=== PATIENT | male | born 1945 | race Caucasian/White ===

== ENCOUNTER → 2017-09-15 17:28 | Outpatient (CLI) | payer MEDICARE, OTHER, SELFPAY ==
--- NOTE | 2017-09-15 | DI.MRI.S_ITS ---
PROCEDURE: MR KNEE RT WO CON INDICATIONS: RIGHT KNEE PAIN TECHNIQUE: Noncontrast sagittal PD fast spin echo and T2 fast spin echo with fat saturation, sagittal 3-D FLASH with fat saturation; coronal T1 spin echo and PD fast spin echo with fat saturation, and axial PD fast spin echo with fat saturation through the knee. COMPARISON: [facility] [place], CR, XR KNEE ARTHRITIC SERIES BI, 09/03/2017, 15:03. FINDINGS: Image quality: Excellent. Menisci: Amorphous high signal intensity within the posterior horn medial meniscus is present with superior articular surface extension, indicating degenerative tearing. Amorphous high signal intensity within the lateral meniscal body is present with superior articular surface extension, indicating degenerative tearing. Cruciate ligaments: The anterior and posterior cruciate ligaments appear intact. Medial structures: The medial collateral ligament appears intact. The posterior oblique ligament, semimembranosus tendon insertions, oblique popliteal ligament, and meniscocapsular junction appear intact. Visualized portions of the pes anserinus tendons appear normal. No abnormal bursal fluid. Lateral structures: The lateral collateral ligament, long and short heads of the biceps femoris tendon appear intact. The popliteus tendon appears normal; the popliteofibular ligament appears intact. The posterosuperior and anteroinferior popliteomeniscal fascicles appear intact. The arcuate and fabellofibular ligaments appear intact, on either side of the lateral inferior geniculate artery. Iliotibial band appears normal. Anterior structures: The quadriceps and patellar tendons appear intact. Patellar alignment is normal. No femoral trochlear dysplasia or ventral trochlear prominence. No edema in the infrapatellar fat pad. Mild prepatellar subcutaneous ill-defined T2 signal elevation. Bones and cartilage: No bone marrow contusions or fractures. There is ill-defined T2 signal elevation within the posterior nonweightbearing aspect of the medial femoral condyle spanning roughly 30 mm, with a central 4 mm diameter well-circumscribed cystic focus with a thin surrounding low T2 intensity rim. Focal full-thickness articular cartilage defect overlies the posterior weightbearing aspect of the lateral femoral condyle measuring 6 mm transverse by 11 mm anteroposterior. Joint space: There is physiologic knee joint fluid. There is a small Nichole's cyst. Normal appearing synovial plicae are incidentally noted. IMPRESSION: 1. Degenerative tearing of the medial and lateral menisci. 2. Lateral compartment articular cartilage loss. 3. Indeterminant T2 signal elevation within the medial femoral condyle, which has an appearance most suggestive of degenerative sequelae. 4. Trace Nichole's cyst. 5. Mild prepatellar bursitis. Dictated by: Brandon Salinas M.D. on 09/16/2017 at 10:17 Approved by: Brandon Salinas M.D. on 09/16/2017 at 10:21
--- NOTE | 2017-09-15 17:32 | DI.MRI.S_ITS ---
PROCEDURE: MR KNEE LT WO CON INDICATIONS: LEFT KNEE PAIN TECHNIQUE: Noncontrast sagittal PD fast spin echo and T2 fast spin echo with fat saturation, sagittal 3-D FLASH with fat saturation; coronal T1 spin echo and PD fast spin echo with fat saturation, and axial PD fast spin echo with fat saturation through the knee. COMPARISON: [facility] [place], CR, XR KNEE ARTHRITIC SERIES BI, 09/03/2017, 15:03. FINDINGS: Image quality: Excellent. Menisci: There is radial tearing of the free edge of the posterior horn medial meniscus. Lateral meniscus demonstrates amorphous high signal intensity within the free edge of the body, demonstrating superior articular surface extension, indicating low-grade degenerative tearing. Cruciate ligaments: The anterior and posterior cruciate ligaments appear intact. Medial structures: The medial collateral ligament appears intact. The posterior oblique ligament, semimembranosus tendon insertions, oblique popliteal ligament, and meniscocapsular junction appear intact. Visualized portions of the pes anserinus tendons appear normal. No abnormal bursal fluid. Lateral structures: The lateral collateral ligament, long and short heads of the biceps femoris tendon appear intact. The popliteus tendon appears normal; the popliteofibular ligament appears intact. The posterosuperior and anteroinferior popliteomeniscal fascicles appear intact. The arcuate and fabellofibular ligaments appear intact, on either side of the lateral inferior geniculate artery. Iliotibial band appears normal. Anterior structures: The quadriceps and patellar tendons appear intact. Patellar alignment is normal. No femoral trochlear dysplasia or ventral trochlear prominence. No edema in the infrapatellar fat pad. Bones and cartilage: No bone marrow contusions or fractures. Fragmentation of the anterior tibial tubercle is present. Moderate irregular articular cartilage loss overlies the lateral patellar facet, with mild underlying ill-defined degenerative marrow edema within the lateral patellar facet. There is a focal full-thickness articular cartilage defect overlying the posterior weightbearing aspect of the lateral femoral condyle measuring 10 mm anteroposterior by 5 mm transverse. Joint space: There is physiologic knee joint fluid. No Nichole's cyst. Normal appearing synovial plicae are incidentally noted. IMPRESSION: 1. Medial and lateral meniscal tearing. 2. Lateral and patellofemoral compartment articular cartilage loss. 3. Remote Hamzah-Schlatter's disease. Dictated by: Brandon Salinas M.D. on 09/16/2017 at 9:20 Approved by: Brandon Salinas M.D. on 09/16/2017 at 9:26
--- NOTE | 2017-09-15 17:45 | DI.MRI.S_ITS ---
PROCEDURE: MR HEAD/BRAIN WO CON INDICATIONS: Dizziness Chronic Migraine TECHNIQUE: Non-contrast axial T1 spin echo, axial T2 fast spin echo, sagittal and axial FLAIR, coronal T2 fast spin echo, axial gradient echo, axial diffusion and ADC through the brain. COMPARISON: None. FINDINGS: Image quality: Excellent. CSF spaces: Ventricles appear symmetric in size and shape. Basal cisterns are patent. No extra-axial fluid collections. Brain: No intracranial bleeds or mass effects. There is moderate cerebral volume loss for age. There are minimal periventricular and deep white matter chronic small vessel ischemic changes. Brainstem appears normal. Diffusion-weighted images show no acute ischemic insults. No chronic ischemic insults. Normal intravascular flow voids are present. Skull and face: Calvarial bone marrow is normal in signal. Orbits are normal. Sinuses: Sinuses and mastoids are clear. IMPRESSION: No 1. No acute intracranial disease process. 2. Moderate, diffuse cerebral volume loss. 3. Minimal periventricular and subcortical white matter chronic microvascular ischemic changes. Dictated by: Dilia Price MD, PhD on 09/16/2017 at 8:42 Approved by: Dilia Price MD, PhD on 09/16/2017 at 9:01
== END ==
PROVIDERS: Family Provider Internal Medicine; Visit Provider Orthopaedic Surgery
DX: S83.8X2A Sprain of other specified parts of left knee, initial encounter (principal); R42 Dizziness and giddiness; G43.909 Migraine, unspecified, not intractable, without status migrainosus; S83.8X1A Sprain of other specified parts of right knee, initial encounter; M71.21 Synovial cyst of popliteal space [Baker], right knee; M70.41 Prepatellar bursitis, right knee
CPT/HCPCS: 70551; 73721

== ENCOUNTER → 2018-03-05 16:22 | Outpatient (CLI) | payer MEDICARE, OTHER, SELFPAY ==
--- NOTE | 2018-03-05 | DI.RAD.S_ITS ---
PROCEDURE: XR THORACIC SPINE 3V INDICATIONS: DORSALGIA TECHNIQUE: 3 views of the thoracic spine were acquired. COMPARISON: None. FINDINGS: Bones: No fractures or dislocations. No suspicious bony lesions. 12 pairs of ribs are noted, and appear intact where visualized. Mild multilevel disc desiccation is present throughout the thoracic spine. Soft tissues: No paravertebral stripe thickening. Lungs are hyperexpanded. IMPRESSION: 1. Multilevel disc space narrowing consistent with degenerative change. 2. Lungs are hyperexpanded suggestive of COPD. Dictated by: Lenka Christina M.D. on 03/06/2018 at 14:12 Approved by: Lenka Christina M.D. on 03/06/2018 at 14:13
--- NOTE | 2018-03-05 | DI.RAD.S_ITS ---
PROCEDURE: XR LUMBAR SPINE 2-3V INDICATIONS: DORSALGIA TECHNIQUE: Pre-views of the lumbar spine were acquired. COMPARISON: [facility], , L-SPINE 2-3 VIEWS, 11/26/2012, 11:01. FINDINGS: Bones: No fracture. Minimal dextrocurvature centered at L2. Diffuse facet arthropathy. Endplate spurring and sclerosis. Mild narrowing of the L1-L2 and L2-L3 disc spaces Soft tissues: Overlying bowel gas pattern is normal. No suspicious soft tissue calcifications. IMPRESSION: Minimal dextrocurvature centered at L2 as before. Mild L1-L2 and L2-L3 disc degeneration, no interval change. Dictated by: Brian Chavez M.D. on 03/06/2018 at 10:41 Approved by: Brian Chavez M.D. on 03/06/2018 at 10:43
== END ==
PROVIDERS: PCP Physician Assistant; Visit Provider Physician Assistant
DX: M51.36 Other intervertebral disc degeneration, lumbar region (principal); M51.34 Other intervertebral disc degeneration, thoracic region; M47.816 Spondylosis without myelopathy or radiculopathy, lumbar region; M48.061 Spinal stenosis, lumbar region without neurogenic claudication; M54.9 Dorsalgia, unspecified
CPT/HCPCS: 72072; 72100

== ENCOUNTER → 2018-07-31 12:59 | Outpatient (CLI) | payer MEDICARE, OTHER, SELFPAY ==
--- NOTE | 2018-07-31 | DI.RAD.S_ITS ---
PROCEDURE: XR CHEST 2V INDICATIONS: Chronic rhinitis TECHNIQUE: 2 views of the chest were acquired. COMPARISON: [facility], , CHEST 2 VIEW, 08/30/2013, 12:01. FINDINGS: Surgical changes and devices: None. Lungs and pleura: Lungs are clear. No pleural effusions or pneumothorax. Mediastinum: Mediastinal contours are normal. Heart size is normal. Bones and chest wall: No suspicious bony abnormalities. Soft tissues appear unremarkable. IMPRESSION: No acute cardiopulmonary disease process. Dictated by: Dilia Price MD, PhD on 07/31/2018 at 13:57 Approved by: Dilia Price MD, PhD on 07/31/2018 at 13:58
== END ==
PROVIDERS: PCP Physician Assistant; Visit Provider Physician Assistant
DX: J31.0 Chronic rhinitis (principal); J47.9 Bronchiectasis, uncomplicated
CPT/HCPCS: 71046

== ENCOUNTER → 2019-01-29 13:19 | Outpatient (CLI) | payer MEDICARE, OTHER, SELFPAY ==
--- NOTE | 2019-01-29 | DI.US.S_ITS ---
PROCEDURE: US PERIPH VENOUS LOW EXTREM BI INDICATIONS: PAIN IN BOTH LEG TECHNIQUE: Real-time imaging, as well as color and pulse Doppler interrogation, were performed of the deep veins of both legs from the inguinal ligament to the popliteal fossa. COMPARISON: None. FINDINGS: Right: The common femoral, femoral and popliteal veins are normally compressible, and free of intraluminal thrombus. Color and pulse Doppler demonstrate normal phasic intravascular flow. There is normal augmentation response to distal compression maneuver. Left: The common femoral, femoral and popliteal veins are normally compressible, and free of intraluminal thrombus. Color and pulse Doppler demonstrate normal phasic intravascular flow. There is normal augmentation response to distal compression maneuver. IMPRESSION: No evidence of deep venous thrombosis. Dictated by: Brian Chavez M.D. on 01/29/2019 at 14:57 Approved by: Brian Chavez M.D. on 01/29/2019 at 14:58
== END ==
PROVIDERS: PCP Internal Medicine; Visit Provider Internal Medicine
DX: M79.605 Pain in left leg (principal); M79.604 Pain in right leg
CPT/HCPCS: 93970

== ENCOUNTER → 2019-04-07 13:05 | Outpatient (CLI) | payer MEDICARE, OTHER, SELFPAY ==
--- NOTE | 2019-04-07 | DI.CT.S_ITS ---
PROCEDURE: CT SINUS SCREEN WO CON INDICATIONS: Dizziness, Sinus congestion TECHNIQUE: Noncontrast 3.0 mm axial images acquired from the frontal sinuses to the mid-sella, with coronal and sagittal reformats. For radiation dose reduction, the following was used: automated exposure control, adjustment of mA and/or kV according to patient size. COMPARISON: None. FINDINGS: Image quality: Excellent. Maxillary Sinuses: No bony remodeling or destruction. Sinuses are clear. Ethmoid Air Cells: No bony remodeling or destruction. Sinuses are clear. Sphenoid Sinuses: No bony remodeling or destruction. Sinuses are clear. Frontal Sinuses: No bony remodeling or destruction. Sinuses are clear. Ostiomeatal Complexes: Ostiomeatal complexes are patent. No Margaret cells. Miscellaneous: Visualized intra-orbital contents are normal. No matt bullosa or paradoxical turbinate curvature. There is only a slight degree of leftward nasal septal deviation with mild left nasal airway stenosis. IMPRESSION: No active sinusitis found. A small degree of leftward deviation of the midline nasal septum with secondary left nasal airway stenosis is noted, and no acute appearing air-fluid level is found. Dictated by: Krystian Torres M.D. on 04/07/2019 at 14:54 Approved by: Krystian Torres M.D. on 04/07/2019 at 14:55
== END ==
PROVIDERS: PCP Internal Medicine; Visit Provider Internal Medicine
DX: J34.89 Other specified disorders of nose and nasal sinuses (principal); R42 Dizziness and giddiness
CPT/HCPCS: 70486

== ENCOUNTER → 2020-03-01 12:48 | Outpatient (CLI) | payer MEDICARE, OTHER, SELFPAY ==
--- NOTE | 2020-03-01 | DI.MG.S_ITS ---
MALE BILATERAL DIGITAL DIAGNOSTIC MAMMOGRAM 3D/2D: 03/01/2020 CLINICAL: Left breast pain. left breast lump. Baseline exam. Baseline exam. No prior exams were available for comparison. There is an irregular area of fibroglandular tissue in the left breast central to the nipple in the retroareolar region. This correlates as palpated. There is also benign irregular area of fibroglandular tissue in the right breast central to the nipple in the retroareolar region. No other significant masses or calcifications are seen in either breast. IMPRESSION: INCOMPLETE: NEEDS ADDITIONAL IMAGING EVALUATION The irregular fibroglandular tissue in the retroareolar left breast corresponding to the palpable abnormality is most compatible with gynecomastia. -A targeted ultrasound to exclude mass is recommended and will immediately follow. Right breast retroareolar gynecomastia is also present. This exam was interpreted at Station ID: [id number]. Electronically Signed By: Goyo Carodna M.D. slc/:03/01/2020 13:40:53 ACR BI-RADS Category 0: Incomplete [id number]
--- NOTE | 2020-03-01 | DI.US.S_ITS ---
LIMITED ULTRASOUND OF LEFT BREAST: 03/01/2020 CLINICAL: Focal left breast pain and fullness. Comparison is made to exam dated: 03/01/2020 [facility]. Color flow and real-time ultrasound of the left breast retroareolar were performed. Bentley scale images of the real-time examination were reviewed. There is a benign irregular area of fibroglandular tissue in the retroareolar left breast. This corresponds to the palpable abnormality. No mass. IMPRESSION: BENIGN There is no sonographic evidence of malignancy. No retroareolar left breast mass. Benign retroareolar left breast gynecomastia is seen sonographically. Right breast gynecomastia is also seen on mammogram. Clinical follow-up is recommended. Exam findings were conveyed to the patient. Patient is advised to monitor for significant change. This exam was interpreted at Station ID: [id number]. Electronically Signed By: Goyo Cardona M.D. slc/:03/01/2020 14:20:18 letter sent: Clinical Evaluation Ultrasound BI-RADS: 2 Benign
== END ==
PROVIDERS: PCP Internal Medicine; Referring Provider Internal Medicine; Visit Provider Internal Medicine
DX: R92.8 Other abnormal and inconclusive findings on diagnostic imaging of breast (principal); N62 Hypertrophy of breast; N64.4 Mastodynia
CPT/HCPCS: 76642; 77066; G0279

== ENCOUNTER → 2020-03-08 15:12 | Outpatient (CLI) | payer MEDICARE, OTHER, SELFPAY ==
[2020-03-08 16:55] LABS: Prostate Specific Antigen 1.09 ng/mL (0.10-4.00)
== END ==
PROVIDERS: PCP Internal Medicine; Referring Provider Internal Medicine; Visit Provider Specialist
DX: R97.20 Elevated prostate specific antigen [PSA] (principal); R39.9 Unspecified symptoms and signs involving the genitourinary system; N40.1 Benign prostatic hyperplasia with lower urinary tract symptoms; N13.8 Other obstructive and reflux uropathy; Z80.42 Family history of malignant neoplasm of prostate; N52.2 Drug-induced erectile dysfunction; I86.1 Scrotal varices; R36.1 Hematospermia
CPT/HCPCS: 36415; 51798; 81002; 84153; 99215

== ENCOUNTER → 2020-03-14 16:11 | Outpatient (CLI) | payer MEDICARE, OTHER, SELFPAY ==
[2020-03-14 17:19] LABS: Alanine Aminotransferase 29 IU/L (<50); Albumin 4.5 g/dL (3.5-5.0); Albumin Globulin Ratio 1.6 (1.0-2.8); Alkaline Phosphatase 60 U/L (38-126); Aspartate Aminotransferase 34 IU/L (17-59); BUN Creatinine Ratio 28.9 (6-22); Bilirubin Total 0.4 mg/dL (0.2-1.3); Blood Urea Nitrogen 26 mg/dL (9-20); Calcium 9.8 mg/dL (8.4-10.2); Carbon Dioxide 37 mmol/L (22-32); Chloride 97 mmol/L (98-107); Estimated Glomerular Filt Rate > 60.0 mL/min (>60); Globulin 2.8 g/dL (1.7-4.1); Glucose 97 mg/dL (80-110); HEMOLYSIS < 15 (0-50); Potassium 3.9 mmol/L (3.4-5.1); Sodium 136 mmol/L (137-145); Total Protein 7.3 g/dL (6.3-8.2)
[2020-03-14 17:35] LABS: Prolactin 9.8 ng/mL (3.7-17.9)
[2020-03-14 17:36] LABS: Follicle Stimulating Hormone 4.86 mIU/mL; Luteinizing Hormone 1.49 mIU/mL
[2020-03-14 17:51] LABS: Estradiol, Total 57.6 pg/mL
[2020-03-18 17:18] LABS: Dihydrotestosterone 10 ng/dL (.)
[2020-03-19 23:42] LABS: Testosterone % Fr + Wkly bound 7.5 % (9.0-46.0); Testosterone Fr+Wkly bound 26.3 ng/dL (40.0-250.0); Testosterone, Total 351.2 ng/dL (264.0-916.0)
== END ==
PROVIDERS: PCP Internal Medicine; Referring Provider Internal Medicine; Visit Provider Internal Medicine
DX: N62 Hypertrophy of breast (principal)
CPT/HCPCS: 36415; 80053; 82642; 82670; 83001; 83002; 84146; 84403

== ENCOUNTER → 2020-04-12 11:57 | Outpatient (CLI) | payer MEDICARE, OTHER, SELFPAY ==
--- NOTE | 2020-04-12 | DI.MRI.S_ITS ---
BREAST MRI OF BOTH BREASTS- WITH CAD: 04/12/2020 CLINICAL: Mastodynia. Comparison is made to exams dated: 03/01/2020 ultrasound and 03/01/2020 mammogram - [facility]. Interpretation of this MRI was correlated with available mammograms and ultrasounds. Informed consent was obtained from the patient. 20 cc of gadolinium contrast was injected. Axial T1, T2, sagittal T1, and pre and post contrast T1 images were obtained with a dedicated breast coil. Post processing was performed including computer aided calculations of any tumor volumes and dimensions. There is minimal background parenchymal enhancement. Right breast: No discrete mass or suspicious enhancement demonstrated in the right breast to suggest malignancy. Left breast: There is indistinct retroareolar enhancement in the left breast. Kinetic enhancement curves demonstrate benign areas of slow initial uptake with progressive enhancement. There is mild asymmetric skin thickening and enhancement in the anterior left breast. No discrete mass lesions or suspicious enhancement to suggest malignancy. Miscellaneous: No evidence of axillary or internal mammary lymphadenopathy by size criteria. IMPRESSION: BENIGN 1. Asymmetric left retroareolar non mass enhancement consistent with gynecomastia as visualized on prior ultrasound and mammogram. 2. Mild asymmetric skin thickening and enhancement in the anterior left breast likely reflect sequelae of gynecomastia or a superimposed infectious or inflammatory process. Malignancy is less likely but clinical follow-up is recommended to demonstrate resolution. This exam was interpreted at Station ID: [id number]. Electronically Signed By: David Seaman M.D. ddp/:04/12/2020 17:17:48 ACR BI-RADS Category 2: Benign Finding(s) 3342F
== END ==
PROVIDERS: PCP Internal Medicine; Referring Provider Physician Assistant; Visit Provider Physician Assistant
DX: N64.4 Mastodynia (principal)
CPT/HCPCS: 77049; A9579

== ENCOUNTER → 2020-04-25 11:47 | Outpatient (CLI) | payer MEDICARE, OTHER, SELFPAY ==
[2020-04-25 13:47] LABS: Add Manual Diff / Slide Review NO; Basophils Absolute Auto 0 /uL (0-100); Eosinophils Absolute Auto 200 /uL (0-450); Eosinophils Percent Auto 4.8 % (2-4); Hematocrit 38.9 % (41-53); Hemoglobin 13.1 g/dL (13.5-17.5); Lymphocytes Absolute Auto 1200 /uL (1100-4500); Lymphocytes Percent Auto 26.3 % (25-40); Mean Corpuscular HGB Conc 33.8 % (30-36); Mean Corpuscular Hemoglobin 30.5 PG (26-34); Mean Corpuscular Volume 90.2 fL (80-100); Monocytes Absolute Auto 400 /uL (0-900); Monocytes Percent Auto 10.2 % (3-14); Neutrophils Absolute Auto 2500 /uL (1500-7000); Neutrophils Percent Auto 57.7 % (50-75); Platelet Count 182 X10^3/uL (150-400); Red Blood Cell Count 4.31 X10^6/uL (4.5-5.9); White Blood Cell Count 4.4 X10^3/uL (4.5-11.0)
[2020-04-25 14:07] LABS: Alanine Aminotransferase 27 IU/L (<50); Albumin 4.2 g/dL (3.5-5.0); Albumin Globulin Ratio 1.6 (1.0-2.8); Alkaline Phosphatase 52 U/L (38-126); Amylase 83 U/L (30-110); Aspartate Aminotransferase 33 IU/L (17-59); Bilirubin Total 0.4 mg/dL (0.2-1.3); Blood Urea Nitrogen 23 mg/dL (9-20); Calcium 9.8 mg/dL (8.4-10.2); Carbon Dioxide 35 mmol/L (22-32); Chloride 98 mmol/L (98-107); Estimated Glomerular Filt Rate > 60.0 mL/min (>60); Globulin 2.6 g/dL (1.7-4.1); Glucose 81 mg/dL (80-110); HEMOLYSIS < 15 (0-50); Lipase 121 U/L (23-300); Potassium 4.7 mmol/L (3.4-5.1); Sodium 135 mmol/L (137-145); Total Protein 6.8 g/dL (6.3-8.2)
[2020-04-26 18:36] LABS: t-Transglutaminase IgA <2 U/mL (0-3)
== END ==
PROVIDERS: PCP Internal Medicine; Referring Provider Internal Medicine; Visit Provider Internal Medicine
DX: R10.13 Epigastric pain (principal)
CPT/HCPCS: 36415; 80053; 82150; 83516; 83690; 85025

== ENCOUNTER → 2022-02-05 11:24 | Outpatient (CLI) | payer MEDICARE, OTHER, SELFPAY ==
[2022-02-05 12:39] LABS: COVID19 -Nasal RAPID Negative (Negative)
== END ==
PROVIDERS: PCP Internal Medicine; Visit Provider Surgery
DX: Z01.812 Encounter for preprocedural laboratory examination (principal); Z20.822 Contact with and (suspected) exposure to COVID-19
CPT/HCPCS: 87635; C9803

== ENCOUNTER 2022-02-06 08:52 | Day surgery (SDC) | payer MEDICARE, OTHER, SELFPAY ==
--- NOTE | 2022-02-06 | PATH_ITS ---
[facility] Accession Number: [id number] . 01 Material submitted: . PART A: stomach - ANTRUM PART B: gastrointestinal site - GASTRIC PART C: esophagus - DISTAL ESOPHAGUS . 01 Diagnosis: A. Stomach, Antrum, Biopsy: Antral mucosa with mild chronic gastritis. Negative for Helicobacter by immunohistochemistry. Negative for intestinal metaplasia. Negative for dysplasia and malignancy. . B. Stomach, Biopsies: Fundic gland polyps with low-grade dysplasia in two of three fragments. On separate fragment of fundic gland polyp without dysplasia. No evidence of Helicobacter on H/E stain. Negative for intestinal metaplasia. Negative for dysplasia and malignancy. . C. Distal Esophagus, Biopsy: Squamocolumnar junctional mucosa with no diagnostic abnormality. Negative for intestinal metaplasia. Negative for dysplasia and malignancy. . [facility] 02/12/2022 1510 Local . 01 Comment: Part B: As part of routine quality analyst, Dr. Hernandez also reviewed part B of this case and agrees with the interpretation. . . 01 Electronically signed: . Liberty Martinez MD, Pathologist NPI- [id number] . 01 Gross description: . Part A: ANTRUM: Received in formalin is 1 fragment(s) of carmona, soft tissue measuring 0.3 x 0.2 x 0.2 cm submitted entirely in 1 cassette(s) Part B: GASTRIC: Received in formalin are 3 fragment(s) of carmona, soft tissue measuring 0.2 x 0.2 x 0.2 cm to 0.3 x 0.3 x 0.3 cm submitted entirely in 1 cassette(s) Part C: DISTAL ESOPHAGUS: Received in formalin are 2 fragment(s) of carmona, soft tissue measuring 0.1 x 0.1 x 0.1 cm to 0.2 x 0.2 x 0.2 cm submitted entirely in 1 cassette(s) /TONI 02/07/2022 2217 Local . 01 Microscopic: . A. An immunohistochemical stain was performed to evaluate for Helicobacter organisms and is negative. The control stain showed appropriate reactivity. . * This test was developed and its performance characteristics determined by [facility]. It has not been cleared or approved by the U.S. Food and Drug Administration. The FDA has determined that such clearance or approval is not necessary. This test is used for clinical purposes. It should not be regarded as investigational or for research. . 01 Pathologist provided ICD-10: R12, K31.7 . 01 CPT . 737555, 273911, 449627, V72470 Specimen Comment: A courtesy copy of this report has been sent to [phone] Performed at: 01 [facility] [address] [place] [address] [id number] MD David Valdes MD Phone: [phone]
[2022-02-06 09:24] VITALS: BMI 23.1
--- NOTE | 2022-02-06 09:25 | P.HP_ITS ---
History of Present Illness History of Present Illness Date Patient Seen: 02/06/22 Time Patient Seen: 09:25 Chief complaint: EGD W/POSS BX Narrative: I reviewed the recent office note by Dr. Stephens. He reports about a 30-40% improvement. He is not really aware of exactly what medication he is taking. Patient History Medical History Asthma Bilateral varicoceles BPH w urinary obs/LUTS Depression Erectile dysfunction Family history of prostate cancer in father FHx: migraine headaches Hematospermia Kidney stone Lower urinary tract symptoms (LUTS) Meatal stenosis Osteoarthritis Skin cancer Surgical History H/O circumcision Family & Social History Family History Father Cancer Thyroid disorder Tobacco & Substance use: Smoking Status Former smoker alcohol intake current Meds Home Medications and Allergies Home Medications Medication Instructions Recorded Confirmed Type VALACYCLOVIR HCL (Valacyclovir) 2,000 mg PO BID ##0 01/25/12 03/08/20 History finasteride 5 mg tablet 5 mg PO QDAY ##0 08/06/17 02/06/22 History ipratropium bromide 42 mcg (0.06 1 spray intranasal BID ##0 08/06/17 02/06/22 History %) nasal spray sertraline 100 mg tablet 150 mg PO QDAY ##0 08/06/17 02/06/22 History lorazepam 1 mg tablet 1 mg PO DAILY PRN Anxiety 03/03/20 02/06/22 History multivitamin with iron 1 tab PO DAILY 03/03/20 02/06/22 History omeprazole 20 mg capsule,delayed 10 mg PO BID 03/03/20 02/06/22 History release tamsulosin 0.4 mg capsule 0.4 mg PO BEDTIME 03/03/20 02/06/22 History galcanezumab-gnlm 120 mg/mL 120 mg SUBCUT QMONTH 02/06/22 02/06/22 History subcutaneous pen injector (Emgality Pen) hydrocodone 7.5 mg-acetaminophen 1 tab PO Q4-6H PRN Pain (Scale 02/06/22 02/06/22 History 325 mg tablet Score 1-3) levothyroxine 112 mcg tablet 112 mcg PO DAILY 02/06/22 02/06/22 History rizatriptan 10 mg disintegrating 10 mg PO Q2-4H PRN Headache 02/06/22 02/06/22 History tablet (Maxalt[employer]) zolpidem 5 mg tablet 5 mg PO BEDTIME PRN Insomnia 02/06/22 02/06/22 History Allergies Allergy/AdvReac Type Severity Reaction Status Date / Time Sulfa (Sulfonamide Allergy Intermediate HIVES Verified 02/06/22 09:15 Antibiotics) [SULFA (SULFONAMIDE ANTIBIOTICS)] Penicillins [PENICILLINS] Allergy Unknown Rash Verified 02/06/22 09:15 Review of Systems Review of Systems ROS: Yes All systems reviewed with the patient and are negative except as otherwise documented Exam Const General: cooperative HENMT Head: normal to inspection Eyes General: appearance normal, both eyes and all related structures Neck Neck: normal visual inspection Chest Chest: normal inspection of the chest Resp Effort & Inspection: normal respiratory effort Cardio Rate: regular rate GI Inspection: normal to inspection Skin General: no rashes or lesions noted Neuro General: patient alert and patient awake Extrem General: normal to inspection and no pedal edema Psych Appearance: grossly normal Assessment & Plan Assessment & Plan narrative: 76-year-old male with reflux. EGD today. Time Spent With Patient Critical Care time: I spent a total of [] minutes of critical care time on this patient's care today; this time is exclusive of procedural time.
[2022-02-06 09:27] VITALS: BP 146/84; PULSE 67; RESP 16; TEMP 36.7; O2SAT 98
[2022-02-06] MEDS: SODIUM CHLORIDE 0.9% 1,000 ML 84 ML IV (09:35)
--- NOTE | 2022-02-06 09:43 | PM.PREOP ---
Pre-operative Note COVID-19 COVID-19 status: Negative Result date/Date tested (Pos, Neg/Pending): 02/05/22 Criteria for continued procedure: Possibility delay results in more complex future surgery or treatment Interval Note History & Physical reviewed/Exam performed by Physician: Yes Changes to H&P: Yes ASA Class (for procedural sedation): II
--- NOTE | 2022-02-06 10:15 | P.OP.EGD_ITS ---
Operative Date/Time/Diagnoses Date of procedure: 02/06/22 Time of procedure: 10:15 Pre-op diagnosis: Reflux only partially responsive to therapy Post-op diagnosis: same Procedure & Clinicians Study performed: EGD with biopsies Same procedure as scheduled: Yes Indications: Reflux only partially responsive to therapy Surgeon: Gamal Santiago Procedure Notes SCOAP/Timeout: Done Procedure in detail: After the risks and benefits were explained, written and verbal informed consent was obtained. The patient was brought into the procedure room and placed into the left lateral decubitus position. Please see nurse manager human capital notes for sedation details.. The scope was introduced into the mouth through the bite block and advanced under direct visualization to the 2nd portion of the duodenum. The scope was slowly withdrawn carefully examining the mucosa for any defects or lesions. Retroflexed views were accomplished in the stomach. The stomach was decompressed, the scope was then removed from the patient who beckie rated the procedure well. Sedation minutes: 11 Complications: none Impression: 1. Duodenum: This was normal from the bulb through to the 2nd portion. 2. Stomach: No ulcers no outlet obstruction no mass lesions. Mild gastropathy with scattered erythema noted in the antrum. Biopsies were acquired for exclusion of Helicobacter. In the more proximal stomach there were a few small benign-appearing polyps. A couple of these were sampled for histopathology. Otherwise retroflexed views of the LES were unremarkable. 3. Esophagus: The squamocolumnar junction was a little variable and in the 7:00 and 2:00 locations appeared to extend up into the tubular esophagus. I acquired biopsies from the apex of these 2 tongues for exclusion of Barretts. There was no evidence of any erosive esophagitis. The remainder of the esophagus was unremarkable. If this is Barretts it would be C 0 M 1. There was a very subtle sliding hiatal hernia present that made judgment of the GE junction a little challenging. Endoscopic diagnosis 1. Subtle sliding hiatal hernia 2. Mild gastropathy 3. Irregular Z-line Post-procedure Plan for aftercare: 1. Await histopathology. 2. Continue low-dose omeprazole as before. 3. Follow up GI clinic in the next 6-8 weeks. 4. If Murphy's is identified, surveillance EGD will likely be recommended for 1 year. Disposition: PACU
[2022-02-06 10:17] VITALS: BP 114/78; PULSE 66; RESP 9; TEMP 36.4; O2SAT 98
[2022-02-06 10:22] VITALS: BP 122/80; PULSE 64; RESP 8; O2SAT 98
[2022-02-06 10:27] VITALS: BP 140/82; PULSE 66; RESP 11; O2SAT 98
[2022-02-06 10:32] VITALS: BP 152/88; PULSE 64; RESP 16; TEMP 36.4; O2SAT 98
--- NOTE | 2022-02-06 10:46 | SUR.PHASEII ---
Pt given discharge instructions pt states he understands discharge instructions. pt to be discharged with his . pt denies nausea and vomiting.
== END 2022-02-06 10:47 | disposition home or self-care (01) ==
PROVIDERS: PCP Internal Medicine; Referring Provider Internal Medicine Gastroenterology; Visit Provider Internal Medicine Gastroenterology
PROC: 0DJ08ZZ Inspection of Upper Intestinal Tract, Via Natural or Artificial Opening Endoscopic (ICD-10-PCS; CPT 43235; principal; 2022-02-06 10:00)
DX: K21.9 Gastro-esophageal reflux disease without esophagitis (principal); K31.9 Disease of stomach and duodenum, unspecified; K44.9 Diaphragmatic hernia without obstruction or gangrene; K29.50 Unspecified chronic gastritis without bleeding; K31.7 Polyp of stomach and duodenum
CPT/HCPCS: 43239; J2704

== ENCOUNTER → 2022-05-22 15:56 | Outpatient (CLI) | payer MEDICARE, OTHER, SELFPAY ==
--- NOTE | 2022-05-22 16:08 | DI.RAD.S_ITS ---
PROCEDURE: XR WRIST RT MIN 3V INDICATIONS: RIGHT WRIST PAIN TECHNIQUE: 3 views of the wrist were acquired. COMPARISON: None. FINDINGS: Bones: Moderate 1st CMC and triscaphe degenerative changes. Punctate calcifications within the TFCC cartilage. No fractures or dislocations. No suspicious bony lesions. Soft tissues: No suspicious soft tissue calcifications. IMPRESSION: Moderate 1st CMC and triscaphe degenerative changes along with punctate calcifications in the TFCC likely degenerative in nature. Dictated by: Edwar Blood M.D. on 05/22/2022 at 18:54 Approved by: Edwar Blood M.D. on 05/22/2022 at 18:55
== END ==
PROVIDERS: PCP Student in an Organized Health Care Education/Training Program; Referring Provider Student in an Organized Health Care Education/Training Program; Visit Provider Student in an Organized Health Care Education/Training Program
DX: M25.531 Pain in right wrist (principal)
CPT/HCPCS: 73110

== ENCOUNTER 2022-06-03 09:57 | Day surgery (SDC) | payer MEDICARE, OTHER, SELFPAY ==
--- NOTE | 2022-06-03 | PATH_ITS ---
[facility] Accession Number: [id number] No. of containers..02 Tissue . 01 Material submitted: . PART A: gastrointestinal site - PROXIMAL STOMACH BIOPSIES PART B: gastrointestinal site - GASTRIC POLYPS . 01 Diagnosis: A. Stomach, Proximal, Biopsies: Body-type mucosa with mild chronic gastritis. Negative for Helicobacter by immunohistochemistry. Negative for intestinal metaplasia. Negative for dysplasia and malignancy. . B. Stomach, Polyps, Biopsies: Fundic gland polyps. No evidence of Helicobacter organisms on H/E stain. Negative for intestinal metaplasia. Negative for dysplasia and malignancy. MRV 06/10/2022 1417 Local . 01 Electronically signed: . Liberty Martinez MD, Pathologist NPI- [id number] . 01 Gross description: . Part A: PROXIMAL STOMACH BIOPSIES: Received in formalin are 4 fragment(s) of carmona, soft tissue measuring 0.2 x 0.2 x 0.2 cm to 0.2 x 0.1 x 0.1 cm submitted entirely in 1 cassette(s) Part B: GASTRIC POLYPS: Received in formalin are multiple fragment(s) of carmona, soft tissue measuring 1.2 x 0.7 x 0.1 cm in aggregate submitted entirely in 1 cassette(s) /CPE 06/04/2022 0645 Local . 01 Microscopic: . A. An immunohistochemical stain was performed to evaluate for Helicobacter organisms and is negative. The control stain showed appropriate reactivity. . * This test was developed and its performance characteristics determined by [employer]. It has not been cleared or approved by the U.S. Food and Drug Administration. The FDA has determined that such clearance or approval is not necessary. This test is used for clinical purposes. It should not be regarded as investigational or for research. . 01 Pathologist provided ICD-10: R12, K31.7 . 01 CPT . 773005, 092871, H59194 Specimen Comment: A courtesy copy of this report has been sent to [phone] Performed at: 01 [facility] [address] [place] [address] [id number] MD David Valdes MD Phone: [phone]
[2022-06-03] MEDS: LACTATED RINGERS 1,000 ML 42 ML IV (10:19)
[2022-06-03 10:22] VITALS: BP 145/84; PULSE 76; RESP 16; TEMP 36.6; O2SAT 98; BMI 23.1
[2022-06-03 10:38] VITALS: BMI 23.1
--- NOTE | 2022-06-03 11:00 | P.HP_ITS ---
History of Present Illness History of Present Illness Date Patient Seen: 06/03/22 Time Patient Seen: 11:00 Chief complaint: EGD W/POSS BX Narrative: History of gastric polyps with low-grade dysplasia. Chronic intermittent nonfocal abdominal discomfort. He is lactose intolerant. Patient History Medical History Asthma Bilateral varicoceles BPH w urinary obs/LUTS Depression Erectile dysfunction Family history of prostate cancer in father FHx: migraine headaches Hematospermia Kidney stone Lower urinary tract symptoms (LUTS) Meatal stenosis Osteoarthritis Skin cancer Surgical History H/O circumcision Family & Social History Family History Father Cancer Thyroid disorder Social History: household members spouse Tobacco & Substance use: Smoking Status Former smoker alcohol intake current alcohol intake frequency a few times a month Substance Use Type does not use Meds Home Medications and Allergies Home Medications Medication Instructions Recorded Confirmed Type VALACYCLOVIR HCL (Valacyclovir) 2,000 mg PO BID ##0 01/25/12 03/08/20 History finasteride 5 mg tablet 5 mg PO QDAY ##0 08/06/17 06/03/22 History ipratropium bromide 42 mcg (0.06 1 spray intranasal BID ##0 08/06/17 06/03/22 History %) nasal spray sertraline 100 mg tablet 150 mg PO QDAY ##0 08/06/17 06/03/22 History lorazepam 1 mg tablet 1 mg PO DAILY PRN Anxiety 03/03/20 06/03/22 History multivitamin with iron 1 tab PO DAILY 03/03/20 06/03/22 History omeprazole 20 mg capsule,delayed 10 mg PO BID 03/03/20 06/03/22 History release tamsulosin 0.4 mg capsule 0.4 mg PO BEDTIME 03/03/20 06/03/22 History galcanezumab-gnlm 120 mg/mL 120 mg SUBCUT QMONTH 02/06/22 06/03/22 History subcutaneous pen injector (Emgality Pen) hydrocodone 7.5 mg-acetaminophen 1 tab PO Q4-6H PRN Pain (Scale 02/06/22 06/03/22 History 325 mg tablet Score 1-3) levothyroxine 112 mcg tablet 112 mcg PO DAILY 02/06/22 06/03/22 History rizatriptan 10 mg disintegrating 10 mg PO Q2-4H PRN Headache 02/06/22 06/03/22 History tablet (Maxalt-MAINTENANCE MACHINE REPAIRER) zolpidem 5 mg tablet 5 mg PO BEDTIME PRN Insomnia 02/06/22 06/03/22 History Allergies Allergy/AdvReac Type Severity Reaction Status Date / Time doxycycline Allergy Intermediate Rash Verified 06/03/22 10:22 Sulfa (Sulfonamide Allergy Intermediate HIVES Verified 02/06/22 09:15 Antibiotics) [SULFA (SULFONAMIDE ANTIBIOTICS)] Penicillins [PENICILLINS] Allergy Unknown Rash Verified 02/06/22 09:15 Review of Systems Review of Systems ROS: Yes All systems reviewed with the patient and are negative except as otherwise documented Exam Vital Signs (past 8 hours): - 06/03/22 10:22 Temperature 97.8 F Pulse Rate 76 Respiratory Rate 16 Blood Pressure 145/84 H Pulse Oximetry 98 Oxygen Delivery Method Room Air Oxygen Delivery Method Room Air Const General: cooperative HENMT Head: normal to inspection Eyes General: appearance normal, both eyes and all related structures Neck Neck: normal visual inspection Chest Chest: normal inspection of the chest Resp Effort & Inspection: normal respiratory effort Cardio Rate: regular rate GI Inspection: normal to inspection Skin General: no rashes or lesions noted Neuro General: patient alert and patient awake Extrem General: normal to inspection and no pedal edema Psych Appearance: grossly normal Assessment & Plan Assessment & Plan narrative: 76-year-old male with a history of dyspepsia, fundic gland polyps with low-grade dysplasia. Repeat EGD for surveillance is pursued today. Time Spent With Patient Critical Care time: I spent a total of [] minutes of critical care time on this patient's care today; this time is exclusive of procedural time.
--- NOTE | 2022-06-03 11:03 | PM.PREOP ---
Pre-operative Note Interval Note History & Physical reviewed/Exam performed by Physician: Yes Changes to H&P: No ASA Class (for procedural sedation): III
--- NOTE | 2022-06-03 11:31 | P.OP.EGD_ITS ---
Operative Date/Time/Diagnoses Date of procedure: 06/03/22 Time of procedure: 11:31 Pre-op diagnosis: Fundic gland polyps with low-grade dysplasia Post-op diagnosis: same Procedure & Clinicians Study performed: EGD with biopsies and hot snare polypectomy Same procedure as scheduled: Yes Indications: Fundic gland polyps with low-grade dysplasia Surgeon: Gamal Santiago Procedure Notes SCOAP/Timeout: Done Procedure in detail: After the risks and benefits were explained, written and verbal informed consent was obtained. The patient was brought into the procedure room and placed into the left lateral decubitus position. Please see anesthesia notes for sedation details. The scope was introduced into the mouth through the bite block and advanced under direct visualization to the 2nd portion of the duodenum. The sc ope was slowly withdrawn carefully examining the mucosa for any defects or lesions. Retroflexed views were accomplished in the stomach. The stomach was decompressed, the scope was then removed from the patient who tolerated the procedure well. Sedation minutes: 20 Complications: none Impression: 1. Duodenum: No pathology appreciated from the bulb through to the 2nd portion. 2. Stomach: No ulcers no outlet obstruction no mass lesions. There was however an approximately 8 mm irregularly shaped subtle submucosal lesion at the confluence of a couple of folds in mid greater curve area of the body. This felt somewhat firm under the closed snare. Retroflexed views of the LES disclosed several very diminutive benign-appearing polyps as before. The largest of these were sampled by way of a combination of cold forceps and hot snare. At least 4 of them were separately addressed. Otherwise the underlying mucosa appeared slightly irritated mildly gastropathic and a random set of biopsies were acquired from the proximal stomach within the region of these polyps. 3. Esophagus: The squamocolumnar junction was slightly variable as previously described. I did not repeat biopsies today. There was a suggestion of some very mild inflammation which may actually account for the patient's ongoing intermittent dyspepsia symptoms. GEJ was at about 45 cm from the incisors. No additional significant mucosal pathology appreciated throughout the esophagus. Endoscopic diagnosis 1. Diminutive proximal gastric polyps 2. Proximal gastropathy 3. Probable small gastric submucosal lesion 4. Irregular Z-line 5. LA grade a erosive esophagitis. Post-procedure Plan for aftercare: 1. Await histopathology. 2. Polyps surveillance we will need to be considered following pathology review. 3. Endoscopic ultrasound exam of the submucosal lesion would be appropriate and therefore the next surveillance scope should likely include EUS. 4. Consider a slight dose escalation with respect to the omeprazole. Perhaps try going from 10 mg b.i.d. up to 20 mg b.i.d.. Disposition: PACU
[2022-06-03 11:35] VITALS: BP 104/70; PULSE 68; RESP 13; TEMP 36.3; O2SAT 97
[2022-06-03 11:40] VITALS: BP 102/68; PULSE 70; RESP 13; O2SAT 96
[2022-06-03 11:44] VITALS: BP 125/78; PULSE 70; RESP 10; TEMP 36.4; O2SAT 96
[2022-06-03 12:05] VITALS: BP 134/88; PULSE 72; RESP 16; TEMP 36.6; O2SAT 97
== END 2022-06-03 12:15 | disposition home or self-care (01) ==
PROVIDERS: PCP Student in an Organized Health Care Education/Training Program; Referring Provider Internal Medicine Gastroenterology; Visit Provider Internal Medicine Gastroenterology
PROC: 0DJ08ZZ Inspection of Upper Intestinal Tract, Via Natural or Artificial Opening Endoscopic (ICD-10-PCS; CPT 43235; principal; 2022-06-03 11:00)
DX: K29.50 Unspecified chronic gastritis without bleeding (principal); E73.9 Lactose intolerance, unspecified; K31.9 Disease of stomach and duodenum, unspecified; K20.80 Other esophagitis without bleeding; K31.7 Polyp of stomach and duodenum
CPT/HCPCS: 43251; 43239; J2704

== ENCOUNTER → 2022-09-03 14:08 | Outpatient (CLI) | payer MEDICARE, OTHER, SELFPAY ==
--- NOTE | 2022-09-03 14:09 | DI.CT.S_ITS ---
PROCEDURE: CT HEAD/BRAIN WO CON INDICATIONS: Unspecified fall, initial encounter TECHNIQUE: Noncontrast 4.5 mm thick angled axial sections acquired from the foramen magnum to the vertex, with coronal and sagittal reformats. For radiation dose reduction, the following was used: automated exposure control, adjustment of mA and/or kV according to patient size. COMPARISON: [facility], CT, CT CERVICAL SPINE WO CON, 09/03/2022, 14:16. [facility], MR, MR HEAD/BRAIN WO CON, 09/15/2017, 18:28. FINDINGS: Image quality: Mild streak artifact can be seen through the skull base. CSF spaces: Basal cisterns are patent. No extra-axial fluid collections. The ventricles are symmetric in size and shape. Brain: No intracranial bleeds or masses. There is cerebral volume loss for age, with resultant ventricular and sulcal prominence. There are periventricular and deep white matter chronic small vessel ischemic changes. There is intracranial internal carotid artery atherosclerosis. Skull and face: Calvarium and visualized facial bones appear intact, without suspicious lesions. Sinuses: Visualized sinuses and mastoids are clear. IMPRESSION: No acute intracranial hemorrhage is seen. No acute intracranial process is seen. Dictated by: Jose Singh M.D. on 09/03/2022 at 13:44 Approved by: Jose Singh M.D. on 09/03/2022 at 13:46
--- NOTE | 2022-09-03 14:09 | DI.CT.S_ITS ---
PROCEDURE: CT CERVICAL SPINE WO CON INDICATIONS: Unspecified fall, initial encounter TECHNIQUE: Noncontrast 3 mm thick sections acquired from the skull base to the T4 level. Sagittal and coronal reformats were then constructed. For radiation dose reduction, the following was used: automated exposure control, adjustment of mA and/or kV according to patient size. COMPARISON: [facility], CR, CERVICAL SPINE 2 OR 3 VIEWS, 11/26/2012, 11:01. [facility], CT, CT HEAD/BRAIN WO CON, 09/03/2022, 14:16. FINDINGS: Image quality: Excellent. Bones: No fractures or dislocations. Visualized superior ribs are intact. Focal degenerative change is seen involving the C1-C2 interface anteriorly. There is moderate disc space narrowing seen at C3-C4, with posteriorly directed endplate osteophytes. At C5-C6 and at C6-C7, moderate disc space narrowing is seen, also with posteriorly directed endplate osteophytes. Milder degenerative changes are seen elsewhere. Soft tissues: Prevertebral soft tissues are normal in thickness. No paravertebral hematomas. No apical pneumothoraces. Right hemithyroidectomy change can be seen. IMPRESSION: Negative for fracture. Cervical spine degenerative changes are seen, which are worst inferiorly. Additional findings: Right hemithyroidectomy Dictated by: Jose Singh M.D. on 09/03/2022 at 13:46 Approved by: Jose Singh M.D. on 09/03/2022 at 13:48
== END ==
PROVIDERS: PCP Student in an Organized Health Care Education/Training Program; Referring Provider Student in an Organized Health Care Education/Training Program; Visit Provider Student in an Organized Health Care Education/Training Program
DX: S09.90XA Unspecified injury of head, initial encounter (principal); M47.812 Spondylosis without myelopathy or radiculopathy, cervical region; W19.XXXA Unspecified fall, initial encounter
CPT/HCPCS: 70450; 72125

== ENCOUNTER → 2023-06-04 14:20 | Outpatient (CLI) | payer MEDICARE, OTHER, SELFPAY ==
[2023-06-04 16:59] LABS: Prostate Specific Antigen 1.35 ng/mL (0.10-4.00)
== END ==
PROVIDERS: PCP Student in an Organized Health Care Education/Training Program; Referring Provider Specialist; Visit Provider Specialist
DX: N40.1 Benign prostatic hyperplasia with lower urinary tract symptoms (principal); N13.8 Other obstructive and reflux uropathy; R39.9 Unspecified symptoms and signs involving the genitourinary system; N35.911 Unspecified urethral stricture, male, meatal; I86.1 Scrotal varices; Z80.42 Family history of malignant neoplasm of prostate
CPT/HCPCS: 36415; 51798; 81002; 84153; 99215

== ENCOUNTER 2023-09-10 08:19 | Day surgery (SDC) | payer MEDICARE, OTHER, SELFPAY ==
[2023-09-10] VITALS (8 sets, daily range): BP systolic 71–121; BP diastolic 45–77; PULSE 73–90; RESP 8–16; TEMP 36.1–36.9; O2SAT 88–99; BMI 23.1
--- NOTE | 2023-09-10 09:21 | PM.HP.1 ---
History of Present Illness History of Present Illness Chief complaint: Dx Colonoscopy Narrative: History of adenomatous colon polyps [facility] Medical History (Updated 06/04/23 @ 18:08 by Sheila Bose MD) Hematospermia Bilateral varicoceles Family history of prostate cancer in father Meatal stenosis BPH w urinary obs/LUTS Lower urinary tract symptoms (LUTS) Osteoarthritis FHx: migraine headaches Kidney stone Depression Skin cancer Asthma Surgical History H/O circumcision Family History Father Cancer Thyroid disorder Migraine Social History marital status: household members: spouse occupational status: employed 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 Smoking Status: Former smoker Tobacco: How many years used: 18 quit status: quit date established alcohol intake: former caffeine: Yes Meds Home Medications and Allergies Home Medications Medication Instructions Recorded Confirmed Type finasteride 5 mg tablet 5 mg PO QDAY ##0 08/06/17 09/10/23 History ipratropium bromide 42 mcg (0.06 1 spray intranasal BID ##0 08/06/17 09/10/23 History %) nasal spray sertraline 100 mg tablet 150 mg PO QDAY ##0 08/06/17 09/10/23 History lorazepam 1 mg tablet 1 mg PO DAILY PRN Anxiety 03/03/20 09/10/23 History multivitamin with iron 1 tab PO DAILY 03/03/20 09/10/23 History omeprazole 20 mg capsule,delayed 10 mg PO BID 03/03/20 09/10/23 History release tamsulosin 0.4 mg capsule 0.4 mg PO BEDTIME 03/03/20 09/10/23 History galcanezumab-gnlm 120 mg/mL 120 mg SUBCUT QMONTH 02/06/22 09/10/23 History subcutaneous pen injector (Emgality Pen) hydrocodone 7.5 mg-acetaminophen 1 tab PO Q4-6H PRN Pain (Scale 02/06/22 09/10/23 History 325 mg tablet Score 1-3) levothyroxine 112 mcg tablet 112 mcg PO DAILY 02/06/22 09/10/23 History rizatriptan 10 mg disintegrating 10 mg PO Q2-4H PRN Headache 02/06/22 09/10/23 History tablet (Maxalt-TELE GROUT SEWER LINE REPAIRER) zolpidem 5 mg tablet (Ambien) 5 mg PO BEDTIME PRN Insomnia 02/06/22 09/10/23 History Allergies Allergy/AdvReac Type Severity Reaction Status Date / Time doxycycline Allergy Intermediate Rash Verified 09/10/23 09:09 Sulfa (Sulfonamide Allergy Intermediate HIVES Verified 09/10/23 09:09 Antibiotics) [SULFA (SULFONAMIDE ANTIBIOTICS)] Penicillins [PENICILLINS] Allergy Unknown Rash Verified 09/10/23 09:09 Exam Vital Signs (past 8 hours): - 09/10/23 09:15 Temperature 98.5 F Pulse Rate 90 Respiratory Rate 16 Blood Pressure 121/77 Pulse Oximetry 97 Oxygen Delivery Method Room Air Oxygen Delivery Method Room Air Narrative Exam Narrative: Oropharynx free of lesions Chest clear to auscultation percussion Cardiac exam reveals no S3 or murmur Assessment & Plan Assessment & Plan narrative: History of adenomatous colon polyps need for follow-up colonoscopy. Risks, benefits, alternatives have been explained.
--- NOTE | 2023-09-10 09:22 | PM.OP.COLON ---
Operative Date/Time/Diagnoses Date of procedure: 09/10/23 Pre-op diagnosis: See indication and findings Procedure & Clinicians Study performed: Colonoscopy Indications: History of adenomatous colon polyps Surgeon: Holly Morales Procedure Notes Procedure in detail: After informed consent was obtained patient was placed in left lateral decubitus position. The video colonoscope was introduced the rectum slowly advanced cecum. Preparation was good. On slow withdrawal mucosa was carefully examined. The scope was removed. The patient tolerated procedure well. Blood loss none Complications none Sedation mac Findings 1. White exudate throughout much of the esophagus probable carley esophagitis 2. Schatzki's ring sink best on retroflexed view, moderate. On withdrawal area dilated with 51 [place] Savary 3. Normal stomach 4. Normal duodenal bulb and sweep We will prescribe medication for her candidiasis and have her call us in 1-2 months to let us know how she is doing.
[2023-09-10] MEDS: LACTATED RINGERS 1,000 ML 150 ML IV (10:33)
--- NOTE | 2023-09-10 11:10 | PM.OP.COLON ---
Operative Date/Time/Diagnoses Date of procedure: 09/10/23 Pre-op diagnosis: See indication and findings Procedure & Clinicians Study performed: Colonoscopy Indications: History of adenomatous colon polyps Surgeon: Holly Morales Procedure Notes Procedure in detail: After informed consent was obtained the patient was placed in left lateral decubitus position. The video colonoscope was then introduced the rectum slowly advanced cecum. On slow withdrawal mucosa was carefully examined. Preparation was fair. The scope was removed. The patient tolerated procedure well. Blood loss none Complications none Sedation mac Findings 1. Normal colonoscopy to cecum other than scattered diverticulosis. Colon was fairly tortuous.
== END 2023-09-10 11:00 | disposition home or self-care (01) ==
PROVIDERS: PCP Internal Medicine; Referring Provider Internal Medicine Gastroenterology; Visit Provider Internal Medicine Gastroenterology
PROC: 0DJD8ZZ Inspection of Lower Intestinal Tract, Via Natural or Artificial Opening Endoscopic (ICD-10-PCS; CPT 45378; principal; 2023-09-10 09:30)
DX: Z12.11 Encounter for screening for malignant neoplasm of colon (principal); Z86.010 Personal history of colon polyps; K57.30 Diverticulosis of large intestine without perforation or abscess without bleeding
CPT/HCPCS: G0105; J2704

== ENCOUNTER → 2023-12-03 14:32 | Outpatient (CLI) | payer MEDICARE, OTHER, SELFPAY ==
[2023-12-03 15:53] LABS: Prostate Specific Antigen 1.04 ng/mL (0.10-4.00)
== END ==
LOC: LAB 14:34
PROVIDERS: PCP Internal Medicine; Referring Provider Specialist; Visit Provider Specialist
DX: N40.1 Benign prostatic hyperplasia with lower urinary tract symptoms (principal); N13.8 Other obstructive and reflux uropathy; R39.9 Unspecified symptoms and signs involving the genitourinary system
CPT/HCPCS: 36415; 84153